=== PATIENT | male | born 1950 | race Two or more races ===

== ENCOUNTER 2019-06-20 18:53 | Inpatient (IN) | payer MEDICARE, MEDICAID ==
[~2019-06-20] VITALS: Ht 167.6 cm; Wt 66.8 kg
[~2019-06-20 18:53] MED LIST: CARV6.252 PO; FERR324T5 PO; INSU100C SQ-INSULIN; LISI-170 PO; NITR0.3T5 SL; NPH,100V5 SC; WARF10TA43 PO
--- NOTE | 2019-06-20 19:10 | NUR ---
pt to imaging.
[2019-06-20 19:27] LABS: BASOPHILS # (AUTO) 0.04 x10^3/uL (0-0.1); BASOPHILS % (AUTO) 0 % (0-1); EOSINOPHILS # (AUTO) 0.17 x10^3/uL (0-0.4); EOSINOPHILS % (AUTO) 2 % (1-7); LYMPHOCYTES # (AUTO) 0.96 x10^3/uL (1-3.4); LYMPHOCYTES % (AUTO) 9 % (22-44); MD NO; MEAN CORPUSCULAR HEMOGLOBIN 28.4 pg (27.5-34.5); MEAN CORPUSCULAR VOLUME 85.9 fL (81-97); MEAN PLATELET VOLUME 8.3 fL (7.4-10.4); MONOCYTES # (AUTO) 0.76 x10^3/uL (0.2-0.8); MONOCYTES % (AUTO) 7 % (2-9); NEUTROPHILS # (AUTO) 8.34 x10^3/uL (1.8-6.8); NEUTROPHILS % (AUTO) 81 % (42-75); PLATELET COUNT 306 x10^3/uL (130-400); RED BLOOD COUNT 3.07 x10^6/uL (4.38-5.82)
[2019-06-20] MEDS ORDERED: SODIUM CHLORIDE FLUSH 10ML SYR IVF ONE (19:30)
--- NOTE | 2019-06-20 19:33 | NUR ---
pt to ed after mglf today while walking home from dialysis. pt states he tripped over a rock while walking and may have landed on an elbow. pt denies hitting head and denies any pain currently. pt presents drowsy, falling asleep between answering questions. pt states extreme fatigue is normal for him after dialysis. pt connected to all monitors. vss. awaiting edmd assessment and results.
[2019-06-20 19:40] LABS: ALANINE AMINOTRANSFERASE 16 U/L (12-78); ALBUMIN 3.2 g/dL (3.4-5.0); ANION GAP 8 mmol/L (5-15); CALCIUM 8.5 mg/dL (8.5-10.1); CHLORIDE 100 mmol/L (98-107); CREATININE 4.29 mg/dL (0.7-1.3)
[2019-06-20 19:44] LABS: ALKALINE PHOSPHATASE 85 U/L (45-117); TOTAL PROTEIN 7.2 g/dL (6.4-8.2)
[2019-06-20 19:47] LABS: TROPONIN I 0.723 ng/mL (0.000-0.045)
--- NOTE | 2019-06-20 20:21 | NUR ---
tech and rn x2 attempting iv.
--- NOTE | 2019-06-20 20:29 | NUR ---
pt resting in room. vss. iv established. awaiting further orders.
[2019-06-20] MEDS ORDERED: ASPIRIN 81 MG TABLET CHEW ONE (20:47)
--- NOTE | 2019-06-20 20:52 | NUR ---
pt medicated per mar. pt declining pain and nausea medication at this time. vss. awaiting room assignment.
[2019-06-20] MEDS ORDERED: ONDANSETRON 2MG/ML, 2ML IVPush PRN ×2 (21:00→23:00)
[2019-06-20] MEDS ORDERED: ASPIRIN 81 MG TABLET CHEW PO ONE (21:00)
[2019-06-20] MEDS ORDERED: MORPHINE SULFATE 4 MG/ML, 1ML IVPush PRN (21:00)
--- NOTE | 2019-06-20 21:19 | NUR ---
report to kurt mendiola. pt ready for transport.
[2019-06-20 21:59] VITALS: BP 127/71
[2019-06-20] MEDS ORDERED: hydrALAzine 20 MG/ML, 1ML IVPush PRN (23:00)
[2019-06-20] MEDS ORDERED: POLYETHYLENE GLYCOL 17 GM PACKET PO PRN (23:00)
[2019-06-20] MEDS ORDERED: OXYcodone IR 5MG TABLET PO PRN (23:00)
[2019-06-20] MEDS ORDERED: DOCUSATE 100 MG CAPSULE PO PRN (23:00)
[2019-06-20] MEDS: INSULIN LISPRO 100 UNITS/ML, PEN SQ-INSULIN SCH (23:00)
[2019-06-20] MEDS ORDERED: LABETALOL 5MG/ML, 20ML IVPush PRN (23:00)
[2019-06-20] MEDS ORDERED: ACETAMINOPHEN 325 MG TABLET PO PRN (23:00)
[2019-06-20] MEDS ORDERED: NITROGLYCERIN 0.4 MG BOTTLE (25 TABS) SL PRN (23:00)
[2019-06-20] MEDS ORDERED: PROMETHAZINE 25 MG/ML, 1ML IM PRN (23:00)
[2019-06-20] MEDS ORDERED: morphine SULFATE 10 MG/ML, 1ML IVPush PRN (23:00)
[2019-06-20] MEDS ORDERED: ONDANSETRON ODT 4 MG PO PRN (23:00)
[2019-06-20] MEDS ORDERED: BISACODYL 10 MG SUPP PR PRN (23:00)
[2019-06-20] MEDS: CARVEDILOL 6.25 MG TABLET PO SCH (23:12)
[2019-06-20] MEDS: HEPARIN 5,000 UNITS/ML, 1ML SQ SCH (23:12)
[2019-06-20 23:14] LABS: FREE T4 (FREE THYROXINE) 1.21 ng/dL (0.76-1.46)
[2019-06-20 23:34] LABS: HEMOGLOBIN A1C 7.1 % (4.2-6.3)
[2019-06-21 02:24] VITALS: BP 155/74
[2019-06-21 05:40] LABS: BASOPHILS # (AUTO) 0.02 x10^3/uL (0-0.1); BASOPHILS % (AUTO) 0 % (0-1); EOSINOPHILS # (AUTO) 0.17 x10^3/uL (0-0.4); EOSINOPHILS % (AUTO) 3 % (1-7); LYMPHOCYTES # (AUTO) 1.44 x10^3/uL (1-3.4); LYMPHOCYTES % (AUTO) 22 % (22-44); MD NO; MEAN CORPUSCULAR HEMOGLOBIN 27.8 pg (27.5-34.5); MEAN CORPUSCULAR HGB CONC 32.7 g/dL (33.2-36.2); MEAN CORPUSCULAR VOLUME 84.9 fL (81-97); MEAN PLATELET VOLUME 8.6 fL (7.4-10.4); MONOCYTES # (AUTO) 0.53 x10^3/uL (0.2-0.8); MONOCYTES % (AUTO) 8 % (2-9); NEUTROPHILS % (AUTO) 67 % (42-75); PLATELET COUNT 274 x10^3/uL (130-400); RED BLOOD COUNT 2.83 x10^6/uL (4.38-5.82); RED CELL DISTRIBUTION WIDTH 19.3 % (9.4-14.8)
[2019-06-21 05:52] LABS: ALBUMIN 2.9 g/dL (3.4-5.0); ANION GAP 9 mmol/L (5-15); CALCIUM 8.2 mg/dL (8.5-10.1); CHLORIDE 103 mmol/L (98-107)
[2019-06-21] MEDS: ASPIRIN 325 MG TABLET EC PO SCH (05:52)
[2019-06-21 05:59] LABS: ALANINE AMINOTRANSFERASE 14 U/L (12-78); ALKALINE PHOSPHATASE 73 U/L (45-117); BILIRUBIN,TOTAL 0.7 mg/dL (0.2-1.0); CHOL/HDL RATIO 2.8; CHOLESTEROL, TOTAL 181 mg/dL (140-239); CREATININE 5.51 mg/dL (0.7-1.3); HDL CHOL % 36 % (26-37); HDL CHOLESTEROL (DIRECT) 65 mg/dL (40-60); LDL CHOLESTEROL,CALCULATED 96 mg/dL (54-169); LDL/HDL RATIO 1.5 (0.5-3.0); TOTAL PROTEIN 6.5 g/dL (6.4-8.2); TRIGLYCERIDES 98 mg/dL (50-200); TROPONIN I 0.673 ng/mL (0.000-0.045); VLDL CHOLESTEROL 20 mg/dL (0-25)
[2019-06-21] MEDS: INSULIN LISPRO 100 UNITS/ML, PEN SQ-INSULIN SCH ×4 (08:09→21:00)
[2019-06-21 08:30] VITALS: BP 163/78
[2019-06-21] MEDS: HEPARIN 5,000 UNITS/ML, 1ML SQ SCH ×2 (10:16→18:02)
[2019-06-21] MEDS: CARVEDILOL 6.25 MG TABLET PO SCH ×2 (10:17→21:30)
[2019-06-21] MEDS: LISINOPRIL 20 MG TABLET PO SCH (10:17)
[2019-06-21 14:50] VITALS: BP 153/78
[2019-06-21 19:07] VITALS: BP 133/71
[2019-06-21 21:29] VITALS: BP 151/67
[2019-06-22 00:41] VITALS: BP 151/75
[2019-06-22] MEDS: HEPARIN 5,000 UNITS/ML, 1ML SQ SCH ×3 (02:15→23:25)
[2019-06-22] MEDS: INSULIN LISPRO 100 UNITS/ML, PEN SQ-INSULIN SCH ×4 (07:00→20:21)
[2019-06-22 09:14] LABS: ALBUMIN 3.1 g/dL (3.4-5.0); ANION GAP 10 mmol/L (5-15); CALCIUM 8.1 mg/dL (8.5-10.1); CHLORIDE 103 mmol/L (98-107); CREATININE 6.26 mg/dL (0.7-1.3)
[2019-06-22 09:32] LABS: MEAN CORPUSCULAR HEMOGLOBIN 27.7 pg (27.5-34.5); MEAN CORPUSCULAR HGB CONC 32.7 g/dL (33.2-36.2); MEAN CORPUSCULAR VOLUME 84.8 fL (81-97); MEAN PLATELET VOLUME 8.2 fL (7.4-10.4); PLATELET COUNT 256 x10^3/uL (130-400); RED BLOOD COUNT 2.69 x10^6/uL (4.38-5.82); RED CELL DISTRIBUTION WIDTH 18.6 % (9.4-14.8)
[2019-06-22 09:35] VITALS: BP 120/70
[2019-06-22 09:35] LABS: MD YES
[2019-06-22 09:39] LABS: EOS#(MANUAL) 0.19 x10^3/uL (0.0-0.4); EOS% (MANUAL) 5 % (1-7); LYMPH#(MANUAL) 0.89 x10^3/uL (1-3.4); LYMPHS% (MANUAL) 24 % (22-44); MONOS#(MANUAL) 0.11 x10^3/uL (0.3-2.7); MONOS% (MANUAL) 3 % (2-9); SEG#(MANUAL) 2.52 x10^3/uL (1.8-6.8); SEGS% (MANUAL) 68 % (42-75)
[2019-06-22 09:40] LABS: <PLATELET ESTIMATE> ADEQUATE; <PLT MORPHOLOGY> NORMAL PLT MORPH; ANISOCYTOSIS 1+; POLYCHROMASIA 1+
[2019-06-22] MEDS: SEVELAMER CARBONATE 800MG TAB PO SCH ×2 (12:00→17:35)
[2019-06-22] MEDS ORDERED: REGADENOSON 0.4 MG/5 ML SYRINGE ONE (13:28)
[2019-06-22 14:15] VITALS: BP 143/76
[2019-06-22] MEDS: LISINOPRIL 20 MG TABLET PO SCH (15:36)
[2019-06-22] MEDS: ASPIRIN 325 MG TABLET EC PO SCH (15:36)
[2019-06-22] MEDS: CARVEDILOL 6.25 MG TABLET PO SCH ×2 (15:36→20:21)
[2019-06-22] MEDS ORDERED: CYANOCOBALAMIN 1,000 MCG/ML, 1ML IM ONE (18:00)
[2019-06-22 19:08] VITALS: BP 122/62
[2019-06-22] MEDS ORDERED: MELATONIN 3 MG TABLET PO PRN (23:30)
[2019-06-23 02:02] VITALS: BP 133/69
[2019-06-23 05:20] LABS: BASOPHILS # (AUTO) 0.01 x10^3/uL (0-0.1); BASOPHILS % (AUTO) 0 % (0-1); EOSINOPHILS # (AUTO) 0.22 x10^3/uL (0-0.4); EOSINOPHILS % (AUTO) 4 % (1-7); LYMPHOCYTES # (AUTO) 1.59 x10^3/uL (1-3.4); LYMPHOCYTES % (AUTO) 28 % (22-44); MD NO; MEAN CORPUSCULAR HGB CONC 33.8 g/dL (33.2-36.2); MEAN CORPUSCULAR VOLUME 85.8 fL (81-97); MEAN PLATELET VOLUME 8.4 fL (7.4-10.4); MONOCYTES # (AUTO) 0.52 x10^3/uL (0.2-0.8); MONOCYTES % (AUTO) 9 % (2-9); NEUTROPHILS # (AUTO) 3.32 x10^3/uL (1.8-6.8); NEUTROPHILS % (AUTO) 59 % (42-75); PLATELET COUNT 272 x10^3/uL (130-400); RED BLOOD COUNT 2.83 x10^6/uL (4.38-5.82); RED CELL DISTRIBUTION WIDTH 18.6 % (9.4-14.8)
[2019-06-23 05:32] LABS: ALBUMIN 3.1 g/dL (3.4-5.0); ANION GAP 9 mmol/L (5-15); CHLORIDE 99 mmol/L (98-107)
[2019-06-23 05:35] LABS: % IRON SATURATION 24 % (20-55); ALANINE AMINOTRANSFERASE 12 U/L (12-78); ALKALINE PHOSPHATASE 63 U/L (45-117); BILIRUBIN,TOTAL 0.6 mg/dL (0.2-1.0); CREATININE 4.86 mg/dL (0.7-1.3); IRON LEVEL 50 mcg/dL (65-175); TOTAL IRON BINDING CAPACITY 212 mcg/dL (250-450); TOTAL PROTEIN 6.5 g/dL (6.4-8.2)
[2019-06-23] MEDS: INSULIN LISPRO 100 UNITS/ML, PEN SQ-INSULIN SCH ×2 (07:00→11:00)
[2019-06-23] MEDS: HEPARIN 5,000 UNITS/ML, 1ML SQ SCH (07:30)
[2019-06-23] MEDS: SEVELAMER CARBONATE 800MG TAB PO SCH (08:57)
[2019-06-23] MEDS: ASPIRIN 325 MG TABLET EC PO SCH (08:58)
[2019-06-23] MEDS: LISINOPRIL 20 MG TABLET PO SCH (08:58)
[2019-06-23] MEDS: CARVEDILOL 6.25 MG TABLET PO SCH (08:58)
[2019-06-23] MEDS ORDERED: CHOLECALCIFEROL 1,000 UNIT TABLET PO SCH (09:00)
[2019-06-23] MEDS ORDERED: CALCITRIOL 0.5 MCG CAPSULE PO SCH (09:00)
[2019-06-23 09:07] VITALS: BP 140/72
[2019-06-23] MEDS ORDERED: SEVE800T8 PO (14:16)
[2019-06-23] MEDS ORDERED: ATOR40TA78 PO (14:16)
[2019-06-23] MEDS ORDERED: CHOL10003 PO (14:16)
[2019-06-23] MEDS ORDERED: ASPI-515 PO (14:16)
[2019-06-23] MEDS ORDERED: CALC0.5C9 PO (14:16)
[2019-06-23 15:47] VITALS: BP 143/86
[2019-06-23] MEDS ORDERED: ATORVASTATIN 40 MG TABLET PO SCH (21:00)
== END 2019-06-23 17:26 | disposition home or self-care (01) | DRG 280 ==
LOC: ED 20:32 → EDIP 20:38 → ED 20:59 → 5SO 21:54
PROVIDERS: ADMIT Internal Medicine; ATTEND Internal Medicine
PROC: 5A1D70Z Performance of Urinary Filtration, Intermittent, Less than 6 Hours Per Day (ICD-10-PCS; principal; 2019-06-22)
DX: I21.A1 Myocardial infarction type 2 (principal); N18.6 End stage renal disease; D68.69 Other thrombophilia; E44.0 Moderate protein-calorie malnutrition; I12.0 Hypertensive chronic kidney disease with stage 5 chronic kidney disease or end stage renal disease; N25.81 Secondary hyperparathyroidism of renal origin; E11.22 Type 2 diabetes mellitus with diabetic chronic kidney disease; I95.9 Hypotension, unspecified; D63.1 Anemia in chronic kidney disease; E78.5 Hyperlipidemia, unspecified; E83.39 Other disorders of phosphorus metabolism; I25.10 Atherosclerotic heart disease of native coronary artery without angina pectoris; I44.7 Left bundle-branch block, unspecified; I48.0 Paroxysmal atrial fibrillation; W01.0XXA Fall on same level from slipping, tripping and stumbling without subsequent striking against object, initial encounter; Y93.01 Activity, walking, marching and hiking; S09.90XA Unspecified injury of head, initial encounter; Y92.038 Other place in apartment as the place of occurrence of the external cause; Z82.49 Family history of ischemic heart disease and other diseases of the circulatory system; Z83.3 Family history of diabetes mellitus; Z99.2 Dependence on renal dialysis; Z68.23 Body mass index [BMI] 23.0-23.9, adult; Z86.73 Personal history of transient ischemic attack (TIA), and cerebral infarction without residual deficits; Z87.891 Personal history of nicotine dependence; Z95.0 Presence of cardiac pacemaker; Z95.5 Presence of coronary angioplasty implant and graft
CPT/HCPCS: 36415; 70450; 71045; 78452; 80053; 80061; 80069; 82306; 82607; 82728; 82962; 83036; 83540; 83550; 83735; 83970; 84439; 84443; 84484; 85014; 85018; 85025; 86704; 86706; 87340; 90935; 93005; 93017; 93306; G0378; J1644; J2785; A9502; C9898; J1815; J3420

== ENCOUNTER 2019-11-09 09:38 | Inpatient (IN) | payer MEDICAID, MEDICARE ==
[~2019-11-09] VITALS: Ht 167.6 cm; Wt 71.0 kg
[~2019-11-09 09:38] MED LIST changes: +ASPI-515 PO; +ATOR40TA78 PO; +CALC0.5C9 PO; +CHOL10003 PO; +SEVE800T8 PO
--- NOTE | 2019-11-09 10:04 | NUR ---
[facility] FROM HOME. PT HAS BEEN IN TRASITION MOVING INTO A NEW APT AND MISSED HIS DIALYSIS ON WEDNESDAY. NORMAL DIALYSIS IS WED, , SAT. C/O INCREASING WEAKNESS AND MALAISE, SOB AND DIZZINESS. PT CHANGED INTO GOWN WITH RN ASSIST, ALLMONITORS PLACED. DR MOORE AT BEDSIDE. PT ASSESSMENT POC REVIEWED AND ORDERS REC'D. CALL LIGHT W/I REACH. PILLOW AND WARM BLANKETS.
--- NOTE | 2019-11-09 11:04 | NUR ---
LEFT FOREARM 18GA 2.5 INCH INTROCAN PIV PLACED WITH ULTRASOUND. FROM WHICH LABS WERE DRAWN
[2019-11-09 11:07] LABS: BASOPHILS # (AUTO) 0.03 x10^3/uL (0-0.1); BASOPHILS % (AUTO) 0 % (0-1); EOSINOPHILS # (AUTO) 0.02 x10^3/uL (0-0.4); EOSINOPHILS % (AUTO) 0 % (1-7); LYMPHOCYTES # (AUTO) 0.91 x10^3/uL (1-3.4); LYMPHOCYTES % (AUTO) 7 % (22-44); MD NO; MEAN CORPUSCULAR HEMOGLOBIN 24.9 pg (27.5-34.5); MEAN CORPUSCULAR VOLUME 77.9 fL (81-97); MEAN PLATELET VOLUME 8.8 fL (7.4-10.4); MONOCYTES # (AUTO) 0.79 x10^3/uL (0.2-0.8); MONOCYTES % (AUTO) 6 % (2-9); NEUTROPHILS # (AUTO) 11.04 x10^3/uL (1.8-6.8); NEUTROPHILS % (AUTO) 86 % (42-75); PLATELET COUNT 290 x10^3/uL (130-400); RED BLOOD COUNT 4.19 x10^6/uL (4.38-5.82); RED CELL DISTRIBUTION WIDTH 18.2 % (9.4-14.8)
[2019-11-09 11:20] LABS: ALANINE AMINOTRANSFERASE 9 U/L (12-78); ALBUMIN 3.1 g/dL (3.4-5.0); ANION GAP 16 mmol/L (5-15); CALCIUM 8.9 mg/dL (8.5-10.1); CHLORIDE 102 mmol/L (98-107)
[2019-11-09 11:22] LABS: ALKALINE PHOSPHATASE 77 U/L (45-117); BILIRUBIN,TOTAL 1.2 mg/dL (0.2-1.0); TOTAL PROTEIN 7.8 g/dL (6.4-8.2)
[2019-11-09 14:18] VITALS: BP 212/91
[2019-11-09] MEDS ORDERED: INSU100V8 SQ (14:23)
[2019-11-09] MEDS ORDERED: BISACODYL 10 MG SUPP PR PRN (16:00)
[2019-11-09] MEDS ORDERED: LABETALOL 5MG/ML, 20ML IVPush PRN (16:00)
[2019-11-09] MEDS ORDERED: DOCUSATE 100 MG CAPSULE PO PRN (16:00)
[2019-11-09] MEDS ORDERED: ACETAMINOPHEN 325 MG TABLET PO PRN (16:00)
[2019-11-09] MEDS ORDERED: POLYETHYLENE GLYCOL 17 GM PACKET PO PRN (16:00)
[2019-11-09 16:14] LABS: TROPONIN I 0.405 ng/mL (0.000-0.045)
[2019-11-09] MEDS ORDERED: DARBEPOETIN 100 MCG/ML SQ SCH (17:00)
[2019-11-09 17:22] LABS: RAPID INFLUENZA A Negative (Negative); RAPID INFLUENZA B Negative (Negative)
[2019-11-09 19:52] VITALS: BP 130/68
[2019-11-09] MEDS: INSULIN LISPRO 100 UNITS/ML, PEN SQ-INSULIN SCH (19:52)
[2019-11-09] MEDS: HEPARIN 5,000 UNITS/ML, 1ML SQ SCH (19:53)
[2019-11-09] MEDS: ATORVASTATIN 40 MG TABLET PO SCH (20:47)
[2019-11-09] MEDS: INSULIN GLARGINE 100 UNITS/ML, PEN SQ-INSULIN SCH (20:47)
[2019-11-09] MEDS: CARVEDILOL 6.25 MG TABLET PO SCH (20:47)
[2019-11-09 22:35] LABS: TROPONIN I 0.416 ng/mL (0.000-0.045)
[2019-11-10 01:24] VITALS: BP 112/65
[2019-11-10] MEDS: HEPARIN 5,000 UNITS/ML, 1ML SQ SCH ×3 (05:00→21:01)
[2019-11-10] MEDS: INSULIN LISPRO 100 UNITS/ML, PEN SQ-INSULIN SCH ×4 (07:00→20:55)
[2019-11-10 08:01] VITALS: BP 110/69
[2019-11-10] MEDS: LISINOPRIL 20 MG TABLET PO SCH (08:08)
[2019-11-10] MEDS: CARVEDILOL 6.25 MG TABLET PO SCH ×2 (08:09→21:01)
[2019-11-10 09:07] LABS: BASOPHILS # (AUTO) 0.03 x10^3/uL (0-0.1); BASOPHILS % (AUTO) 0 % (0-1); EOSINOPHILS # (AUTO) 0.22 x10^3/uL (0-0.4); EOSINOPHILS % (AUTO) 3 % (1-7); LYMPHOCYTES # (AUTO) 1.25 x10^3/uL (1-3.4); LYMPHOCYTES % (AUTO) 14 % (22-44); MD NO; MEAN CORPUSCULAR HGB CONC 31.8 g/dL (33.2-36.2); MEAN CORPUSCULAR VOLUME 78.6 fL (81-97); MONOCYTES # (AUTO) 0.67 x10^3/uL (0.2-0.8); MONOCYTES % (AUTO) 8 % (2-9); NEUTROPHILS # (AUTO) 6.63 x10^3/uL (1.8-6.8); NEUTROPHILS % (AUTO) 75 % (42-75); PLATELET COUNT 273 x10^3/uL (130-400); RED BLOOD COUNT 4.18 x10^6/uL (4.38-5.82); RED CELL DISTRIBUTION WIDTH 18.2 % (9.4-14.8)
[2019-11-10 09:11] LABS: ALANINE AMINOTRANSFERASE 14 U/L (12-78); ALBUMIN 2.7 g/dL (3.4-5.0); ANION GAP 11 mmol/L (5-15); CALCIUM 8.9 mg/dL (8.5-10.1); CHLORIDE 105 mmol/L (98-107); CREATININE 8.19 mg/dL (0.7-1.3)
[2019-11-10 09:22] LABS: ALKALINE PHOSPHATASE 71 U/L (45-117); BILIRUBIN,TOTAL 1.1 mg/dL (0.2-1.0); TOTAL PROTEIN 7.3 g/dL (6.4-8.2)
[2019-11-10 13:41] VITALS: BP 118/73
[2019-11-10] MEDS: BENZONATATE 100 MG CAPSULE PO SCH ×2 (17:09→21:01)
[2019-11-10 19:11] VITALS: BP 129/80
[2019-11-10 19:39] VITALS: BP 133/80
[2019-11-10] MEDS: ATORVASTATIN 40 MG TABLET PO SCH (21:01)
[2019-11-10] MEDS: INSULIN GLARGINE 100 UNITS/ML, PEN SQ-INSULIN SCH (21:02)
[2019-11-11] MEDS: HYDROcodone/APAP 5/325 TABLET PO PRN ×2 (01:03→23:11)
[2019-11-11 01:43] VITALS: BP 109/74
[2019-11-11] MEDS: HEPARIN 5,000 UNITS/ML, 1ML SQ SCH ×3 (05:00→20:08)
[2019-11-11] MEDS: INSULIN LISPRO 100 UNITS/ML, PEN SQ-INSULIN SCH ×4 (07:00→20:09)
[2019-11-11 07:27] VITALS: BP 126/64
[2019-11-11] MEDS: LISINOPRIL 20 MG TABLET PO SCH (09:00)
[2019-11-11] MEDS: CARVEDILOL 6.25 MG TABLET PO SCH ×2 (09:00→20:08)
[2019-11-11] MEDS: BENZONATATE 100 MG CAPSULE PO SCH ×3 (09:03→20:08)
[2019-11-11] MEDS: SEVELAMER CARBONATE 800MG TAB PO SCH ×3 (09:03→17:01)
[2019-11-11 13:39] LABS: ALANINE AMINOTRANSFERASE 14 U/L (12-78); ALBUMIN 2.7 g/dL (3.4-5.0); ANION GAP 8 mmol/L (5-15); CALCIUM 8.5 mg/dL (8.5-10.1); CHLORIDE 102 mmol/L (98-107)
[2019-11-11 13:40] LABS: BASOPHILS # (AUTO) 0.04 x10^3/uL (0-0.1); BASOPHILS % (AUTO) 1 % (0-1); EOSINOPHILS # (AUTO) 0.25 x10^3/uL (0-0.4); EOSINOPHILS % (AUTO) 4 % (1-7); LYMPHOCYTES # (AUTO) 0.99 x10^3/uL (1-3.4); LYMPHOCYTES % (AUTO) 17 % (22-44); MD NO; MEAN CORPUSCULAR HEMOGLOBIN 25.1 pg (27.5-34.5); MEAN CORPUSCULAR HGB CONC 31.5 g/dL (33.2-36.2); MEAN CORPUSCULAR VOLUME 79.5 fL (81-97); MEAN PLATELET VOLUME 9.3 fL (7.4-10.4); MONOCYTES # (AUTO) 0.32 x10^3/uL (0.2-0.8); MONOCYTES % (AUTO) 5 % (2-9); NEUTROPHILS # (AUTO) 4.41 x10^3/uL (1.8-6.8); NEUTROPHILS % (AUTO) 73 % (42-75); PLATELET COUNT 273 x10^3/uL (130-400); RED BLOOD COUNT 4.03 x10^6/uL (4.38-5.82); RED CELL DISTRIBUTION WIDTH 17.8 % (9.4-14.8)
[2019-11-11 13:41] LABS: ALKALINE PHOSPHATASE 65 U/L (45-117); BILIRUBIN,TOTAL 0.5 mg/dL (0.2-1.0); TOTAL PROTEIN 7.2 g/dL (6.4-8.2)
[2019-11-11 16:40] VITALS: BP 136/79
[2019-11-11 17:30] LABS: MICROSCOPIC INDICATED
[2019-11-11 19:57] VITALS: BP 137/80
[2019-11-11] MEDS: ATORVASTATIN 40 MG TABLET PO SCH (20:08)
[2019-11-11] MEDS: INSULIN GLARGINE 100 UNITS/ML, PEN SQ-INSULIN SCH (20:09)
[2019-11-12] VITALS (7 sets, daily range): BP systolic 2–162; BP diastolic 63–93
[2019-11-12] MEDS: HEPARIN 5,000 UNITS/ML, 1ML SQ SCH ×3 (05:00→20:52)
[2019-11-12] MEDS: INSULIN LISPRO 100 UNITS/ML, PEN SQ-INSULIN SCH ×4 (07:00→20:56)
[2019-11-12] MEDS: SEVELAMER CARBONATE 800MG TAB PO SCH ×3 (08:37→17:23)
[2019-11-12] MEDS: CARVEDILOL 6.25 MG TABLET PO SCH ×2 (09:00→20:52)
[2019-11-12] MEDS: LISINOPRIL 20 MG TABLET PO SCH (09:00)
[2019-11-12] MEDS: IRON SUCROSE COMPLEX 100MG/5ML IV SCH (09:49)
[2019-11-12] MEDS: BENZONATATE 100 MG CAPSULE PO SCH ×3 (09:50→20:52)
[2019-11-12 11:55] LABS: BASOPHILS # (AUTO) 0.09 x10^3/uL (0-0.1); BASOPHILS % (AUTO) 1 % (0-1); EOSINOPHILS # (AUTO) 0.31 x10^3/uL (0-0.4); EOSINOPHILS % (AUTO) 5 % (1-7); LYMPHOCYTES % (AUTO) 18 % (22-44); MD NO; MEAN CORPUSCULAR HEMOGLOBIN 24.7 pg (27.5-34.5); MEAN CORPUSCULAR HGB CONC 31.4 g/dL (33.2-36.2); MEAN CORPUSCULAR VOLUME 78.6 fL (81-97); MEAN PLATELET VOLUME 8.9 fL (7.4-10.4); MONOCYTES # (AUTO) 0.55 x10^3/uL (0.2-0.8); MONOCYTES % (AUTO) 9 % (2-9); NEUTROPHILS # (AUTO) 4.06 x10^3/uL (1.8-6.8); NEUTROPHILS % (AUTO) 67 % (42-75); PLATELET COUNT 258 x10^3/uL (130-400); RED BLOOD COUNT 4.15 x10^6/uL (4.38-5.82); RED CELL DISTRIBUTION WIDTH 17.7 % (9.4-14.8)
[2019-11-12 12:07] LABS: ALANINE AMINOTRANSFERASE 16 U/L (12-78); ALBUMIN 2.7 g/dL (3.4-5.0); ANION GAP 11 mmol/L (5-15); CALCIUM 8.4 mg/dL (8.5-10.1); CHLORIDE 103 mmol/L (98-107); CREATININE 6.99 mg/dL (0.7-1.3)
[2019-11-12 12:28] LABS: ALKALINE PHOSPHATASE 63 U/L (45-117); BILIRUBIN,TOTAL 0.5 mg/dL (0.2-1.0); FREE T4 (FREE THYROXINE) 1.43 ng/dL (0.76-1.46); TOTAL PROTEIN 7.2 g/dL (6.4-8.2); TROPONIN I 0.211 ng/mL (0.000-0.045)
[2019-11-12] MEDS: FERROUS SULFATE 325 MG TABLET PO SCH (12:42)
[2019-11-12 12:53] LABS: CLOSTRIDIUM DIFFICILE ANTIGEN NEGATIVE; CLOSTRIDIUM DIFFICILE TOXIN NEGATIVE (Negative)
[2019-11-12] MEDS: ATORVASTATIN 40 MG TABLET PO SCH (20:52)
[2019-11-12] MEDS: HYDROcodone/APAP 5/325 TABLET PO PRN (20:53)
[2019-11-12] MEDS: INSULIN GLARGINE 100 UNITS/ML, PEN SQ-INSULIN SCH (20:57)
[2019-11-13 02:23] VITALS: BP 130/65
[2019-11-13] MEDS: HEPARIN 5,000 UNITS/ML, 1ML SQ SCH ×2 (05:13→13:00)
[2019-11-13 05:48] LABS: BASOPHILS # (AUTO) 0.04 x10^3/uL (0-0.1); BASOPHILS % (AUTO) 1 % (0-1); EOSINOPHILS # (AUTO) 0.51 x10^3/uL (0-0.4); EOSINOPHILS % (AUTO) 9 % (1-7); LYMPHOCYTES % (AUTO) 19 % (22-44); MD NO; MEAN CORPUSCULAR HEMOGLOBIN 25.1 pg (27.5-34.5); MEAN CORPUSCULAR HGB CONC 31.4 g/dL (33.2-36.2); MEAN PLATELET VOLUME 9.1 fL (7.4-10.4); MONOCYTES # (AUTO) 0.65 x10^3/uL (0.2-0.8); MONOCYTES % (AUTO) 11 % (2-9); NEUTROPHILS # (AUTO) 3.67 x10^3/uL (1.8-6.8); NEUTROPHILS % (AUTO) 61 % (42-75); PLATELET COUNT 266 x10^3/uL (130-400); RED BLOOD COUNT 4.01 x10^6/uL (4.38-5.82); RED CELL DISTRIBUTION WIDTH 17.3 % (9.4-14.8)
[2019-11-13 06:01] LABS: CHLORIDE 103 mmol/L (98-107)
[2019-11-13 06:10] LABS: ALANINE AMINOTRANSFERASE 12 U/L (12-78); ALBUMIN 2.6 g/dL (3.4-5.0); ALKALINE PHOSPHATASE 60 U/L (45-117); ANION GAP 10 mmol/L (5-15); BILIRUBIN,TOTAL 0.4 mg/dL (0.2-1.0); CALCIUM 8.8 mg/dL (8.5-10.1); CREATININE 8.81 mg/dL (0.7-1.3); TOTAL PROTEIN 6.9 g/dL (6.4-8.2)
[2019-11-13 06:50] VITALS: BP 127/58
[2019-11-13] MEDS: INSULIN LISPRO 100 UNITS/ML, PEN SQ-INSULIN SCH ×2 (07:00→10:49)
[2019-11-13] MEDS: FERROUS SULFATE 325 MG TABLET PO SCH (08:20)
[2019-11-13] MEDS: CARVEDILOL 6.25 MG TABLET PO SCH (08:20)
[2019-11-13] MEDS: BENZONATATE 100 MG CAPSULE PO SCH (08:20)
[2019-11-13] MEDS: SEVELAMER CARBONATE 800MG TAB PO SCH ×2 (08:20→12:08)
[2019-11-13] MEDS: LISINOPRIL 20 MG TABLET PO SCH (08:20)
[2019-11-13] MEDS: IRON SUCROSE COMPLEX 100MG/5ML IV SCH (08:21)
[2019-11-13] MEDS ORDERED: LACTOBACILLUS CHEW TABLET PO SCH (09:30)
[2019-11-13] MEDS ORDERED: ACETAMINOPHEN 325 MG TABLET PO PRN (09:30)
[2019-11-13] MEDS ORDERED: HYDROcodone/APAP 5/325 TABLET PO PRN (12:00)
[2019-11-13] MEDS ORDERED: ACID1TAB7 PO (12:08)
[2019-11-13] MEDS ORDERED: SEVE800T8 PO (12:08)
[2019-11-13] MEDS ORDERED: FERR-51 PO (12:08)
[2019-11-13 12:34] VITALS: BP 145/79
[2019-11-15] MEDS ORDERED: FERROUS SULFATE 325 MG TABLET PO SCH (08:00)
== END 2019-11-13 13:55 | disposition home or self-care (01) | DRG 425 ==
LOC: ED 12:36 → EDIP 12:40 → 4EST 13:55 → DCLOUNGE 11-13 13:48
PROVIDERS: ADMIT Internal Medicine; ATTEND Internal Medicine
PROC: 5A1D70Z Performance of Urinary Filtration, Intermittent, Less than 6 Hours Per Day (ICD-10-PCS; 2019-11-09)
PROC: 5A1D70Z Performance of Urinary Filtration, Intermittent, Less than 6 Hours Per Day (ICD-10-PCS; principal; 2019-11-11)
DX: E87.5 Hyperkalemia (principal); E87.2 Acidosis; D68.69 Other thrombophilia; E11.22 Type 2 diabetes mellitus with diabetic chronic kidney disease; I12.0 Hypertensive chronic kidney disease with stage 5 chronic kidney disease or end stage renal disease; I48.0 Paroxysmal atrial fibrillation; E11.65 Type 2 diabetes mellitus with hyperglycemia; D63.1 Anemia in chronic kidney disease; E55.9 Vitamin D deficiency, unspecified; E78.5 Hyperlipidemia, unspecified; I16.0 Hypertensive urgency; I25.10 Atherosclerotic heart disease of native coronary artery without angina pectoris; I25.2 Old myocardial infarction; N18.6 End stage renal disease; D53.9 Nutritional anemia, unspecified; N25.81 Secondary hyperparathyroidism of renal origin; Z99.2 Dependence on renal dialysis; Z79.4 Long term (current) use of insulin; Z82.49 Family history of ischemic heart disease and other diseases of the circulatory system; Z83.3 Family history of diabetes mellitus; Z86.73 Personal history of transient ischemic attack (TIA), and cerebral infarction without residual deficits; Z95.0 Presence of cardiac pacemaker
CPT/HCPCS: 36415; 70450; 71045; 80053; 81001; 82728; 82962; 83540; 83550; 83690; 83735; 84100; 84145; 84439; 84443; 84484; 85025; 86706; 87040; 87046; 87324; 87340; 87400; 90935; 93005; G0378; J0881; J1644; J1756; J1815

== ENCOUNTER 2020-02-03 13:46 | Emergency (ER) | payer MEDICARE, MEDICAID ==
[~2020-02-03] VITALS: Ht 167.6 cm; Wt 67.0 kg
[~2020-02-03 13:46] MED LIST changes: +ACID1TAB7 PO; +ASPI81TA45 PO; +CHOL2000 PO; +FERR-51 PO; +HYDR-3341 PO; +INSU100V8 SQ
[2020-02-03] MEDS ORDERED: METHOCARBAMOL 750 MG TABLET PO ONE (14:00)
[2020-02-03] MEDS ORDERED: KETOROLAC 30 MG/1 ML IM ONE (14:00)
--- NOTE | 2020-02-03 14:03 | NUR ---
PT STATES HE WAS LAYING DOWN, "I DIDN'T DO ANYTHING, THERE WAS NO TRAUMA". PT HAS ANGRY ATTITUDE. NO MEDS TAKEN TODAY. C/O PAIN FROM RT HIP TO RT FOOT.
[2020-02-03] MEDS ORDERED: [UNRECOGNIZED DRUG - OTHER] (14:15)
[2020-02-03] MEDS ORDERED: LISINOPRIL (14:15)
--- NOTE | 2020-02-03 14:17 | NUR ---
TO RADIOLOGY PER SUNNI
[2020-02-03] MEDS ORDERED: PLEASE ENTER HEIGHT AND WEIGHT MC SCH (14:30)
[2020-02-03] MEDS ORDERED: KETOROLAC 30 MG/1 ML ONE (14:50)
[2020-02-03] MEDS ORDERED: METHOCARBAMOL 500 MG TABLET ONE (14:51)
--- NOTE | 2020-02-03 15:00 | NUR ---
TORADOL AND ROBAXIN GIVEN PER EMAR. PT IN RT LATERAL POSITION, SIDE RAILS UP X2, CALL LIGHT W/IN REACH.
--- NOTE | 2020-02-03 15:52 | NUR ---
DR MICHELLE BS TO DISCUSS POC. PT REPORTS IMPROVEMENT IN PAIN. CURRENTLY LYING SUPINE.
[2020-02-03 15:54] VITALS: BP 146/83
== END 2020-02-03 16:19 | disposition home or self-care (01) ==
LOC: ED 16:00
DX: M54.41 Lumbago with sciatica, right side (principal)
CPT/HCPCS: 72110; 93005; 96372; 99283; J1885

== ENCOUNTER 2020-02-10 22:51 | Emergency (ER) | payer MEDICARE, MEDICAID ==
[~2020-02-10] VITALS: Ht 167.6 cm; Wt 58.9 kg
[~2020-02-10 22:51] MED LIST changes: +LISINOPRIL; +[UNRECOGNIZED DRUG - OTHER]
--- NOTE | 2020-02-10 23:13 | NUR ---
C/O RIGHT SIDE LEG PAIN DOWN THE BACK SINCE YESTERDAY MORNING.
--- NOTE | 2020-02-10 23:26 | NUR ---
PLACED [employer] SR STRATEGY MANAGER AND VITALS MONITORS. PT REPORTS HE MISSED DIALYSIS TODAY.
[2020-02-11] MEDS ORDERED: HYDROmorphone 2 MG/ML, 1ML ONE (00:06)
[2020-02-11] MEDS ORDERED: ONDANSETRON ODT 4 MG ONE (00:07)
--- NOTE | 2020-02-11 00:24 | NUR ---
Break RN: pt alert and resting on gurbong.
[2020-02-11] MEDS ORDERED: HYDROmorphone 1 MG/ML, 1ML INJ IM PRN (00:30)
[2020-02-11] MEDS ORDERED: ONDANSETRON ODT 4 MG PO ONE (00:30)
[2020-02-11 00:56] VITALS: BP 142/80
== END 2020-02-11 01:19 | disposition home or self-care (01) ==
LOC: ED 23:24
DX: S39.012A Strain of muscle, fascia and tendon of lower back, initial encounter (principal); M54.40 Lumbago with sciatica, unspecified side; I25.2 Old myocardial infarction; E11.65 Type 2 diabetes mellitus with hyperglycemia; E78.5 Hyperlipidemia, unspecified; R00.0 Tachycardia, unspecified; X58.XXXA Exposure to other specified factors, initial encounter; Y93.89 Activity, other specified; Y92.89 Other specified places as the place of occurrence of the external cause; Y99.8 Other external cause status
CPT/HCPCS: 96372; 99283; J1170; Q0162